=== PATIENT | female | born 1940 | race Caucasian/White ===

== ENCOUNTER 2020-05-06 12:55 | Outpatient (CLI) | payer MEDICARE, SELFPAY ==
--- NOTE | ~2020-05-06 | XR_ITS ---
EXAMINATION: XR hand LT min 3V EXAM DATE: 05/06/2020 13:40 INDICATION: No known recent injury provided at this time. Pain of the left hand. Osteoarthritis. TECHNIQUE: Left hand frontal, lateral and oblique projections obtained and reviewed. There is no jermey or study for comparison. FINDINGS: Left metacarpal bones are unremarkable. 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 There are no bony erosions identified. There are no acute fracture s or dislocations identified. There is no subcutaneous gas. The soft tissue is unremarkable. Ther e are no radiopaque foreign bodies. IMPRESSION: Polyarticular osteoarthritis most advanced at triscaphe and 1st CMC joints. Reviewed, dictated and finalized at location A.
== END 2020-05-06 12:56 | disposition home or self-care (01) ==
PROVIDERS: Visit Provider Plastic Surgery
DX: M19.042 Primary osteoarthritis, left hand (principal)
CPT/HCPCS: 73130